=== PATIENT | male | born 1990 | race African-American/Black ===

== ENCOUNTER 2016-07-22 21:20 | Emergency (ER) | payer SELFPAY ==
[~2016-07-22] VITALS: Ht 167.6 cm; Wt 100.0 kg
[~2016-07-22 21:20] MED LIST: ZOFR4TAB3 SL
[2016-07-22 21:22] VITALS: BP 133/77; PULSE 70; RESP 16; TEMP 97.5; O2SAT 97
--- NOTE | 2016-07-22 21:44 | PD ---
HPI Chief Complaint: GI Complaint Time Seen by Provider: 21:37 Travel History International Travel<30 days: No Contact w/Intl Traveler<30days: No Traveled to known affect area: No History of Present Illness HPI 26-year-old Afro-[place] male coming in with several hours of severe epigastric burning/heartburn. Patient states he ate at [employer] developed sudden onset of burning and pain to the point of vomiting. Patient states he's had trouble with heartburn intermittently over the past couple of years. Patient states he only uses Tums and mints to try and combat it. Patient states he's had no fever, chills, shortness of breath, chest pain, or diarrhea. Patient denies blood in his emesis. Patient denies coffee grounds in his emesis. Patient denies changes in his bowels. He denies black tarry stools. He is allergic to apples but no known drug allergies. PFSH Past Medical History Diminished Hearing: No Respiratory: No (hx pleurisy in high school) Immunizations Current: Yes Past Surgical History Abdominal Surgery: Yes (hernia repair as an ) Genitourinary Surgery: Yes (HAD UNDESCENDED TESTICLE AT 3 YEARS OLD) Social History Alcohol Use: Yes Tobacco Use: Yes (07/17 ppd) Substance Use: Yes (marijuana occasionally) Allergies-Medications (Allergen,Severity, Reaction): Coded Allergies: Apple (Verified Allergy, Severe, 07/22/16) Reported Meds & Prescriptions Reported Meds & Active Scripts Active Magic Mouthwash Adult Liq (Multi-Ingredient Mouthwash/Gargle) 120 Ml Susp 5 Ml SWISH-SWAL ACHS Each 5 mL contains: Nystatin 200,000 units, Diphenhydramine 4.25 mg, Viscous Lidocaine 10 mg, Queen syrup 0.8 mL Omeprazole 40 Mg Cap 40 Mg PO DAILY Review of Systems Except as stated in HPI: all other systems reviewed are Neg General / Constitutional: No: Fever Eyes: No: Visual changes HENT: No: Headaches Cardiovascular: No: Chest Pain or Discomfort Respiratory: No: Shortness of Breath Gastrointestinal: Positive: Nausea, Vomiting, Abdominal Pain, Indigestion, Dysphagia, No: Diarrhea, Hematemesis, Hematochezia, Constipation, Changes in Bowel Habits, Loss of Appetite Genitourinary: No: Dysuria Musculoskeletal: No: Pain Skin: No Rash Neurologic: No: Weakness Psychiatric: No: Depression Endocrine: No: Polydipsia Hematologic/Lymphatic: No: Easy Bruising Physical Exam Narrative GENERAL: Patient appears in moderate distress. SKIN: Warm and dry. Normal color. Normal turgor. HEAD: Atraumatic. Normocephalic. EYES: Pupils equal and round. No scleral icterus. No injection or drainage. ENT: No nasal bleeding or discharge. Mucous membranes pink and moist. Pharynx is normal. NECK: Trachea midline. No JVD. Supple and nontender. CARDIOVASCULAR: Regular rate and rhythm. RESPIRATORY: No accessory muscle use. Clear to auscultation. Breath sounds equal bilaterally. GASTROINTESTINAL: Abdomen soft, patient has mild to moderate epigastric tenderness. He is nondistended. Hepatic and splenic margins not palpable. No CVA tenderness. MUSCULOSKELETAL: Extremities without clubbing, cyanosis, or edema. No obvious deformities. NEUROLOGICAL: Awake and alert. No obvious cranial nerve deficits. Motor grossly within normal limits. Five out of 5 muscle strength in the arms and legs. Normal speech. PSYCHIATRIC: Appropriate mood and affect; insight and judgment normal. Data Data Last Documented VS Vital Signs Date Time Temp Pulse Resp B/P Pulse Ox O2 Delivery O2 Flow Rate FiO2 07/22/16 21:34 16 07/22/16 21:22 97.5 70 133/77 97 Room Air Orders Basic Metabolic Panel (Bmp) (07/22/16 21:35) Complete Blood Count With Diff (07/22/16 21:35) Iv Access Insert/Monitor (07/22/16 21:35) Ecg Monitoring (07/22/16 21:35) Oximetry (07/22/16 21:35) Pantoprazole Inj (Protonix Inj) (07/22/16 21:45) Sodium Chloride 0.9% Flush (Ns Flush) (07/22/16 21:45) Al-Mag Hy-Si 40-40-4 Mg/Ml Liq (Mag-Al P (07/22/16 21:45) Lidocaine 2% Viscous (Xylocaine 2% Visco (07/22/16 21:45) Ondansetron Inj (Zofran Inj) (07/22/16 22:00) Lipase (07/22/16 21:53) Hepatic Functional Panel (07/22/16 21:53) Labs Laboratory Tests Test 07/22/16 21:45 White Blood Count 8.5 TH/MM3 Red Blood Count 5.10 MIL/MM3 Hemoglobin 15.3 GM/DL Hematocrit 43.8 % Mean Corpuscular Volume 85.8 FL Mean Corpuscular Hemoglobin 30.1 PG Mean Corpuscular Hemoglobin 35.1 % Concent Red Cell Distribution Width 14.4 % Platelet Count 191 TH/MM3 Mean Platelet Volume 8.0 FL Neutrophils (%) (Auto) 62.4 % Lymphocytes (%) (Auto) 28.8 % Monocytes (%) (Auto) 7.9 % Eosinophils (%) (Auto) 0.8 % Basophils (%) (Auto) 0.1 % Neutrophils # (Auto) 5.3 TH/MM3 Lymphocytes # (Auto) 2.4 TH/MM3 Monocytes # (Auto) 0.7 TH/MM3 Eosinophils # (Auto) 0.1 TH/MM3 Basophils # (Auto) 0.0 TH/MM3 CBC Comment DIFF FINAL Differential Comment Sodium Level 139 MEQ/L Potassium Level 3.9 MEQ/L Chloride Level 105 MEQ/L Carbon Dioxide Level 28.9 MEQ/L Anion Gap 5 MEQ/L Blood Urea Nitrogen 14 MG/DL Creatinine 1.05 MG/DL Estimat Glomerular Filtration 104 ML/MIN Rate Random Glucose 90 MG/DL Calcium Level 8.5 MG/DL [facility] Medical Decision Making Medical Screen Exam Complete: Yes Emergency Medical Condition: Yes Differential Diagnosis Gastritis. Esophageal Reflux. Esophageal spasm. Narrative Course Patient is felt to be medically stable at time of exam. Basic labs ordered including a CBC and BMP. Patient is given a GI cocktail. Patient is given 40 mg pantoprazole IV. Patient is given 4 mg Zofran IV. 2200 hrs. patient is reassessed and found to be much improved after the above treatment plan. Labs are unremarkable. Patient will be discharged home with omeprazole 40 mg daily #30 with 2 refills. Patient is given instructions regarding esophageal reflux and dietary changes necessary. Patient should follow-up with her primary care physician or return to emergency department if symptoms worsen or recur. Diagnosis Primary Impression: Gastro-esophageal reflux disease with esophagitis Referrals: Primary Care Physician Patient Instructions: Diet for Stomach Ulcers and Gastritis (ED), Gastroesophageal Reflux Disease (ED), General Instructions Departure Forms: Work Release Enter return to work date: Jul 23, 2016 Additional Instructions: Labs are unremarkable. Patient will be discharged home with omeprazole 40 mg daily #30 with 2 refills. Patient is given instructions regarding esophageal reflux and dietary changes necessary. Patient should follow-up with her primary care physician or return to emergency department if symptoms worsen or recur. Med/Other Pt SpecificInfo: Prescription(s) given Scripts Wsfavcpi-Asvorflkqspsnrh-Khzzpacie Liq (Magic Mouthwash Adult Liq)120 Ml Susp5 Ml SWISH-SWAL ACHS #120 ML Each 5 mL contains: Nystatin 200,000 units, Diphenhydramine 4.25 mg, Viscous Lidocaine 10 mg, Queen syrup 0.8 mL Prov:Anna Diaz MD 07/22/16 Omeprazole 40 Mg Cap40 Mg PO DAILY #30 CAP Ref 2 Prov:Anna Diaz MD 07/22/16 Disposition: 01 DISCHARGE HOME Condition: Stable Gurvinder Nichols Jul 22, 2016 21:44
[2016-07-22] MEDS ORDERED: ALUMINUM/MAGNESIUM/SIMETH 30 ML CUP PO ONE (21:45)
[2016-07-22] MEDS ORDERED: SODIUM CHLORIDE 0.9% FLUSH 5 ML FLUSH IVF PRN (21:45)
[2016-07-22] MEDS ORDERED: PANTOPRAZOLE SODIUM 40 MG VIAL IVP ONE (21:45)
[2016-07-22] MEDS ORDERED: LIDOCAINE VISCOUS 2% SOLN 15 ML UDC PO ONE (21:45)
[2016-07-22 21:53] LABS: AUTOMATED NEUTROPHIL # 5.3 TH/MM3 (1.8-7.7); BASOPHIL % 0.1 % (0.0-2.0); EOSINOPHIL # 0.1 TH/MM3 (0-0.4); EOSINOPHIL % 0.8 % (0.0-4.0); HEMATOCRIT 43.8 % (39.0-51.0); HEMO FLAGS DIFF FINAL; LYMPH % 28.8 % (9.0-44.0); LYMPHOCYTE # 2.4 TH/MM3 (1.0-4.8); MEAN CELL VOLUME 85.8 FL (80.0-100.0); MEAN CORPUSCULAR HEMOGLOBIN 30.1 PG (27.0-34.0); MEAN CORPUSCULAR HGB CONC 35.1 % (32.0-36.0); MONO % 7.9 % (0.0-8.0); NEUT % 62.4 % (16.0-70.0); PLATELET COUNT 191 TH/MM3 (150-450); RED CELL DISTRIBUTION WIDTH 14.4 % (11.6-17.2); WHITE BLOOD COUNT 8.5 TH/MM3 (4.0-11.0)
[2016-07-22] MEDS ORDERED: ONDANSETRON HCL 4 MG/2 ML VIAL IV PUSH ONE (22:00)
[2016-07-22] MEDS ORDERED: OMEP40CA2 PO (22:19)
[2016-07-22] MEDS ORDERED: MAGICADU2 SWISH-SWAL (22:19)
[2016-07-22 22:21] LABS: BICARBONATE 28.9 MEQ/L (21.0-32.0); POTASSIUM 3.9 MEQ/L (3.5-5.1)
[2016-07-22 23:31] LABS: INDIRECT BILIRUBIN 0.2 MG/DL (0.0-0.8); TOTAL BILIRUBIN ADULT 0.3 MG/DL (0.2-1.0)
== END 2016-07-22 23:42 | disposition home or self-care (01) ==
LOC: NEPC 21:20
DX: K21.0 Gastro-esophageal reflux disease with esophagitis (principal); F17.210 Nicotine dependence, cigarettes, uncomplicated; F12.90 Cannabis use, unspecified, uncomplicated
CPT/HCPCS: 80048; 80076; 83690; 85025; 96374; 96375; 99283; C9113; J2405

== ENCOUNTER 2017-11-22 11:03 | Emergency (ER) | payer SELFPAY ==
[~2017-11-22] VITALS: Ht 167.6 cm; Wt 93.0 kg
[~2017-11-22 11:03] MED LIST changes: +AMOX875T PO; +CHLO.12%30 SWISH-SPIT; +IBUP1TAB7 PO; -ZOFR4TAB3 SL
[2017-11-22 11:17] VITALS: BP 121/58; PULSE 72; RESP 15; TEMP 98.9; O2SAT 99
--- NOTE | 2017-11-22 12:06 | RADRPT ---
EXAM DATE/TIME: 11/22/2017 11:54 [facility] COMPARISON: No previous studies available for comparison. INDICATIONS : Right ankle pain, fell MEDICAL HISTORY : None. SURGICAL HISTORY : None. ENCOUNTER: Initial ACUITY: 2 days PAIN SCORE: 6/10 LOCATION: Right Ankle FINDINGS: Three view exam was performed of the right ankle. The bony structures are in normal alignment. No e vidence of fracture or dislocation. There may be some minimal soft tissue swelling over the lateral m alleolus. The ankle mortise is intact. No radiopaque foreign bodies are seen. Bony mineralization is normal. CONCLUSION: Minimal soft tissue swelling. No fracture. Iván Carty MD on November 22, 2017 at 12:04 Board Certified Radiologist. This report was verified electronically.
--- NOTE | 2017-11-22 12:23 | PD ---
HPI Chief Complaint: Injury Time Seen by Provider: 11:27 Travel History International Travel<30 days: No Contact w/Intl Traveler<30days: No Traveled to known affect area: No History of Present Illness HPI 27 Alicia presents emerged department with left ankle pain. Reports that he rolled it last night he has pain with walking, pain radiates up the leg a little bit. Is mild to moderate in severity. No other complaints History Past Medical History Medical History: Denies Significant Hx Social History Alcohol Use: No Tobacco Use: No Allergies-Medications (Allergen,Severity, Reaction): Coded Allergies: apple (Unverified Allergy, Severe, 05/15/17) Reported Meds & Prescriptions Reported Meds & Active Scripts Active Ibuprofen 800 Mg Tab 800 Mg PO Q6HR PRN Amoxicillin 875 Mg Tab 875 Mg PO BID 10 Days Chlorhexidine Gluconate (Mouth) Liq (Chlorhexidine Gluconate) 0.12% Soln 15 Ml SWISH-SPIT BID 10 Days Review of Systems Except as stated in HPI: all other systems reviewed are Neg Physical Exam Narrative GENERAL: Well-appearing 27-year-old man, no acute distress. SKIN: Warm and dry. CARDIOVASCULAR: Warm and well perfused. RESPIRATORY: Normal rate and effort. MUSCULOSKELETAL: Normal appearance of the ankle. A little bit of soft tissue swelling laterally. Tenderness in the lateral malleolus. No tenderness with calf squeeze or evidence of high ankle sprain. No ligamentous instability. NEUROLOGICAL: Awake and alert. No gross deficits. Data Data Last Documented VS Vital Signs Date Time Temp Pulse Resp B/P (MAP) Pulse Ox O2 Delivery O2 Flow Rate FiO2 11/22/17 11:17 98.9 72 15 121/58 (79) 99 Orders Orders Ankle, Complete ([id number]) (11/22/17 ) [facility] Medical Decision Making Medical Screen Exam Complete: Yes Emergency Medical Condition: Yes Interpretation(s) X-ray ankle negative Differential Diagnosis Strain, fracture, high ankle sprain, fibular fracture, other Narrative Course Medical decision making Well-appearing 27-year-old man, presents emerged department with ankle pain. He describes some funny feeling rating up the leg. He has no pain with calf squeeze or evidence of fibular fracture remains on new type injury. Possible high ankle sprain. Looks overall well. Is able to bear weight. Recommend supportive treatment. Diagnosis Primary Impression: Ankle sprain Patient Instructions: General Instructions Departure Forms: Tests/Procedures, Work Release Enter return to work date: November 25, 2017 Additional Instructions: Bear weight as tolerated. Follow-up with your doctor if not completely well in 1 week. Use [id number] acetaminophen or ibuprofen as needed for pain. Return to the emergency department for any new or worsening symptoms. Med/Other Pt SpecificInfo: Prescription(s) given, No Change to Meds Disposition: 01 DISCHARGE HOME Condition: Stable John Saldana MD November 22, 2017 12:22
== END 2017-11-22 12:50 | disposition home or self-care (01) ==
LOC: NEPK 11:03
DX: S93.401A Sprain of unspecified ligament of right ankle, initial encounter (principal); X50.1XXA Overexertion from prolonged static or awkward postures, initial encounter
CPT/HCPCS: 73610; 99283

== ENCOUNTER 2017-12-12 12:42 | Emergency (ER) | payer SELFPAY ==
[~2017-12-12] VITALS: Ht 170.2 cm; Wt 89.0 kg
[2017-12-12 12:55] VITALS: BP 127/78; PULSE 79; RESP 16; TEMP 97.5; O2SAT 99
[2017-12-12] MEDS ORDERED: IBUP1TAB7 PO (13:08)
[2017-12-12] MEDS ORDERED: AMOX875T PO (13:08)
--- NOTE | 2017-12-12 13:11 | PD ---
HPI Chief Complaint: ENT Complaint Time Seen by Provider: 13:01 Travel History International Travel<30 days: No Contact w/Intl Traveler<30days: No Traveled to known affect area: No History of Present Illness HPI 27-year-old male presents the ED for evaluation of 2 day history of hearing loss and numbness of the ear on the right side. Gradual onset. He endorses recent history of sinus congestion, nonproductive cough. Patient denies fever, chills, ear pain, sore throat. He was seen at [facility] last week and diagnosed with bronchitis. He states that he did not take any of the medications that were prescribed at that time. He is a current smoker. PFSH Past Medical History Diminished Hearing: No Respiratory: Yes (hx pleurisy in high school) Immunizations Current: Yes Past Surgical History Abdominal Surgery: Yes (hernia repair as an infant) Genitourinary Surgery: Yes (HAD UNDESCENDED TESTICLE AT 3 YEARS OLD) Social History Alcohol Use: No Tobacco Use: Yes (PACK/WK) Substance Use: Yes (marijuana occasionally) Allergies-Medications (Allergen,Severity, Reaction): Coded Allergies: apple (Unverified Allergy, Severe, 12/12/17) Reported Meds & Prescriptions Reported Meds & Active Scripts Active Ibuprofen 800 Mg Tab 800 Mg PO Q8H PRN Amoxicillin 875 Mg Tab 875 Mg PO BID 10 Days Review of Systems Except as stated in HPI: all other systems reviewed are Neg Physical Exam Narrative GENERAL: Well-nourished, well-developed SKIN: Warm and dry. HEAD: Normocephalic. Atraumatic. EYES: No scleral icterus. No injection or drainage. PERRLA. EOMI. ENT: Left tympanic membrane pearly reyes, no effusion. Right tympanic membrane erythematous, bulging. No tenderness to palpation of the mastoid. Tug test negative. Nasal mucosa is moist. Oropharynx without erythema, edema or exudate. NECK: Supple, trachea midline. No JVD or lymphadenopathy. CARDIOVASCULAR: Regular rate and rhythm without murmurs, gallops, or rubs. RESPIRATORY: Breath sounds clear and equal bilaterally. No accessory muscle use. GASTROINTESTINAL: Abdomen soft, non-tender, nondistended. + Bowel sounds MUSCULOSKELETAL: No cyanosis, or edema. Walks with a normal gait. BACK: Nontender without obvious deformity. No CVA tenderness. Data Data Last Documented VS Vital Signs Date Time Temp Pulse Resp B/P (MAP) Pulse Ox O2 Delivery O2 Flow Rate FiO2 12/12/17 12:55 97.5 79 16 127/78 (94) 99 Orders Orders Ed Discharge Order (12/12/17 13:11) MDM Medical Decision Making Medical Screen Exam Complete: Yes Emergency Medical Condition: Yes Differential Diagnosis Cerumen impaction versus serous otitis versus acute otitis media versus less likely mastoiditis versus other Narrative Course 27-year-old male presents the ED for evaluation of 2 day history of hearing loss and numbness of the ear on the right side. He endorses recent history of sinus congestion, nonproductive cough. Patient denies fever, chills, ear pain, sore throat. He was seen at [facility] last week and diagnosed with bronchitis. He is a current smoker. Patient's afebrile on presentation. Exam consistent with right otitis media. No evidence of mastoiditis. Patient' s prescribed amoxicillin 875 twice daily 10 days and a course of anti- inflammatories. He is instructed to begin the medications today, take them until all doses are gone, return for worsening symptoms. He indicated understanding of the instructions. He is agreeable with the care plan. The patient is stable and discharged home. Diagnosis Primary Impression: Right acute otitis media Referrals: Ear / Nose / Throat Specialist Additional Instructions: Rest, hydrate. Begin antibiotics today and take them until every pill is gone. Ibuprofen as prescribed, as needed for pain. Do not put anything in the affected ear. Follow-up with the research laboratory technician. Return to the ED for worsening symptoms or any urgent or emergent medical condition. Med/Other Pt SpecificInfo: Prescription(s) given Scripts Ibuprofen (Ibuprofen) 800 Mg Tab 800 MG PO Q8H Y for Pain/Inflammation, #12 TAB 0 Refills Prov: Lance Tenorio MD 12/12/17 Amoxicillin (Amoxicillin) 875 Mg Tab 875 MG PO BID for Infection for 10 Days, #20 TAB 0 Refills Prov: Lance Tenorio MD 12/12/17 Disposition: 01 DISCHARGE HOME Condition: Stable Ashleigh Rowley December 12, 2017 13:11
== END 2017-12-12 13:23 | disposition home or self-care (01) ==
LOC: NEPK 12:42
DX: H66.91 Otitis media, unspecified, right ear (principal); F17.200 Nicotine dependence, unspecified, uncomplicated; F12.90 Cannabis use, unspecified, uncomplicated
CPT/HCPCS: 99283